=== PATIENT | male | born 1950 | race Caucasian/White ===

== ENCOUNTER 2019-04-02 14:38 | Emergency (ER) | payer OTHER ==
[~2019-04-02] VITALS: Ht 172.7 cm; Wt 81.6 kg
[2019-04-02 14:57] VITALS: BP 148/75
--- NOTE | 2019-04-02 15:00 | NUR ---
PT TRIAGED, SENT BACK TO [facility]
[2019-04-02 15:10] VITALS: BP 148/75
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
--- NOTE | 2019-04-02 15:30 | NUR ---
PT AMBULATED TO CHAIR
[2019-04-02] MEDS ORDERED: IBUPROFEN 600 MG TAB PO ONE (15:40)
== END 2019-04-02 15:59 | disposition home or self-care (01) ==
LOC: MED 14:38
DX: S16.1XXA Strain of muscle, fascia and tendon at neck level, initial encounter (principal); S39.012A Strain of muscle, fascia and tendon of lower back, initial encounter; Z90.49 Acquired absence of other specified parts of digestive tract; V89.2XXA Person injured in unspecified motor-vehicle accident, traffic, initial encounter; Y93.89 Activity, other specified; Y92.89 Other specified places as the place of occurrence of the external cause; Y99.8 Other external cause status
CPT/HCPCS: 99282